=== PATIENT | female | born 1965 | race American Indian/Alaskan Native ===

== ENCOUNTER 2017-02-23 11:07 | Emergency (ER) | payer OTHER ==
[2017-02-23 12:56] VITALS: BP 234/141
[2017-02-23] MEDS ORDERED: CATAPRES PO ONE (13:04)
--- NOTE | 2017-02-23 15:09 | Cat Scan Report ---
CT HEAD WITHOUT CONTRAST: HISTORY: Headache, hypertension. TECHNIQUE: Sequential 2.5mm CT images. COMPARISON: none. FINDINGS: Cerebral Parenchyma: Within normal limits. Cerebellum: Within normal limits. Brainstem: Within normal limits. Ventricles: Normal. Sella: Normal. Extra-axial spaces: Normal. Basal Cisterns: Normal. Intracranial Hemorrhage: None. Midline Shift: None. Calvarium: Normal. Sinuses: Normal. Mastoid Air Cells: Normal. Visualized Orbits: Normal. IMPRESSION: Cranial CT scan within normal limits.
== END 2017-02-23 14:19 | disposition left against medical advice (07) ==
LOC: ED 11:07
DX: Z53.21 Procedure and treatment not carried out due to patient leaving prior to being seen by health care provider (principal)
CPT/HCPCS: 70450

== ENCOUNTER 2017-02-24 00:15 | Emergency (ER) | payer OTHER ==
[2017-02-24] MEDS ORDERED: MOTRIN ONE (01:38)
[2017-02-24] MEDS ORDERED: CATAPRES ONE (01:41)
[2017-02-24] MEDS ORDERED: CATAPRES PO ONE (01:55)
[2017-02-24] MEDS ORDERED: MOTRIN PO ONE (01:55)
[2017-02-24] MEDS ORDERED: ZOFRAN IV ONE (06:31)
[2017-02-24] MEDS ORDERED: MORPHINE IV ONE (06:31)
[2017-02-24] MEDS ORDERED: APRESOLINE IV ONE (06:32)
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
[2017-02-24 09:16] VITALS: BP 147/89
== END 2017-02-24 09:32 | disposition home or self-care (01) ==
LOC: ED 00:15
DX: S80.12XA Contusion of left lower leg, initial encounter (principal); V89.2XXA Person injured in unspecified motor-vehicle accident, traffic, initial encounter; Y93.89 Activity, other specified; Y92.89 Other specified places as the place of occurrence of the external cause; Y99.8 Other external cause status
CPT/HCPCS: 73552; 73560; 73610; 96374; 96375; 99283; J0360; J2270; J2405